=== PATIENT | female | born 1950 | race Caucasian/White ===

== ENCOUNTER 2019-05-30 08:48 | Emergency (ER) | payer MEDICARE, SELFPAY ==
--- NOTE | 2019-05-30 09:12 | ED_ITS ---
HPI - Trauma General Chief Complaint: Extremity Injury, Upper Stated Complaint: broken left arm Time Seen by Provider: 05/30/19 08:53 Source: patient and family Mode of arrival: Ambulatory Limitations: no limitations History of Present Illness HPI narrative: 68-year-old female nonsmoker with noncontributory medical history presents with her grandson and chief complaint of a known fractured left arm. The patient was working last Wednesday (6 days ago) when she tripped and fell onto her left arm. She suffered a humerus fracture and was seen and evaluated as an outpatient by her primary care provider with an x-ray noting the fracture. She was placed in a splint and a sling and given contact info for [facility]. She has had trouble getting in to see them. She denies any numbness, tingling or weakness Review of Systems Constitutional Constitutional: Denies chills, Denies fatigue, Denies fever(s), Denies frequent falls, Denies lethargy and Denies weakness Eyes Eyes: Denies change in vision, Denies eye discharge, Denies irritation and Denies loss of vision ENT Ears, Nose, Mouth, and Throat: Denies change in voice, Denies dizziness, Denies neck pain, Denies sore throat and Denies throat swelling Cardiovascular Cardiovascular: Denies chest pain, Denies irregular heart rhythm, Denies lightheadedness, Denies palpitations, Denies dyspnea, Denies dyspnea on exertion and Denies orthopnea Respiratory Respiratory: Denies cough, Denies dyspnea, Denies dyspnea on exertion and Denies wheezing Gastrointestinal Gastrointestinal: Denies abdominal pain, Denies change in bowel habits, Denies diarrhea, Denies nausea and Denies vomiting Genitourinary Genitourinary: Denies hematuria, Denies flank pain, Denies urinary incontinence and Denies urinary urgency Musculoskeletal Musculoskeletal: Denies back pain, Reports joint swelling, Denies muscle wea kness, Denies neck pain, Denies numbness, Reports radiating pain into limb and Denies tingling Integumentary/Breasts Skin/Breast: Denies pruritus, Denies erythema, Denies rash and Denies wounds Neurologic Neurologic: Denies behavioral changes, Denies confusion, Denies dizziness, Denies frequent falls, Denies loss of vision, Denies numbness, Denies tingling and Denies weakness Psychiatric Psychiatric: Denies anxiety, Denies behavioral changes, Denies confusion, Denies depression, Denies homicidal ideation and Denies suicidal ideation Endocrine Endocrine: Denies fatigue, Denies flushing and Denies palpitations Hematologic/Lymphatic Hematologic/Lymphatic: Denies easy bruising Allergic/Immunologic Allergic/Immunologic: Denies urticaria, Denies throat swelling and Denies wheezing Exam Narrative Exam Narrative: GENERAL: [68F] year old patient appears stated age. Well- nourished, well-developed patient, in mild distress.Splint in place on arm HEAD: Atraumatic. Normocephalic. EYES: Pupils equal round and reactive. Extraocular motions intact. No scleral icterus. No injection or drainage. ENT: Nose without bleeding, purulent drainage. Throat without erythema, tonsillar hypertrophy or exudate. Airway patent. NECK: Trachea midline. Non tender CARDIOVASCULAR: Regular rate and rhythm without murmurs, gallops, or rubs. RESPIRATORY: Clear to auscultation. Breath sounds equal bilaterally. No wheezes, rales, or rhonchi. GASTROINTESTINAL: Abdomen soft, non-tender, nondistended. EXTREMITIES: Splint in place on left arm, closed, isolated, neurovascularly intact. Aged bruising around the mid shaft of left humerus with yellowing at the edges. Patient also has tenderness in shoulder, elbow and wrist. Obvious deformity noted mid shaft and humerus BACK: Nontender without deformity or crepitance. No flank tenderness. NEURO: AOx3. SKIN: No rash or erythema of visible areas other than that which is named above Initial Vital Signs Initial Vital Signs: Vital Signs Temperature 98.9 F 05/30/19 09:16 Pulse Rate 82 05/30/19 09:16 Respiratory Rate 13 05/30/19 09:16 Blood Pressure 178/85 H 05/30/19 09:16 Pulse Oximetry 98 05/30/19 09:16 Procedures Orthopedic Splinting/Casting Injury #1: Side: left Upper Extremity Injury Location: upper arm Upper Extremity Immobilizer: sling/shoulder immobilizer and posterior splint Post splinting neuro exam: intact Post splinting vascular exam: intact Placed by: Nursing Course Orders Ordered: ED Orders 05/30/19 10:06 XR elbow LT min 3V Stat XR shoulder LT min 2V Stat XR wrist LT min 3V Stat Consultations Consultation #1: Discussed with on-call Orthopedics whom is in agreement with our plan Vital Signs Vital signs: Vital Signs - 8 hr 05/30/19 09:16 05/30/19 12:10 Temperature 98.9 F Pulse Rate 82 80 Respiratory Rate 13 18 Blood Pressure 178/85 H 140/81 Pulse Oximetry 98 97 Discharge Plan Departure Patient Disposition: Home Clinical Impression: Fracture of humerus Qualifiers: Encounter type: initial encounter Humerus Location: proximal Fracture type: closed Fracture alignment: displaced Laterality: left Discharge Date/Time: 05/30/19 12:10 Instructions: DI for Fracture Activity Restrictions/Additional Instructions: *You have been diagnosed with [acute humerus fracture] *What to do: *Take medications as directed: Continue taking your Hydrocodone as prescribed *Follow up with [facility] in 2-3 days, call for an appointment. Let them know you were seen in the Emergency Department and that we ask that you be seen in follow up *Return to ER if you should have any new, worsening or concerning symptoms, such as [increasing pain, weakness, numbness, tingling or other bothersome symptoms] Splint Care: Keep splint clean and dry. Elevated affected body part to decrease swelling. OK to use ice pack on the affected body part. Use for 15-20 minutes each time, for 5-6x per day. If you develop worsening pain, numbness, tingling, discoloration of the affected body part, loosen the splint by loosening the ANDREW wrap, and either see your doctor for an urgent re-assessment, or return to the Emergency Department. Return to the Emergency Department for any new or worsening symptoms. Referrals: Eugenio Medley MD [Physician] - Sukhi Scanlon MD [Primary Care Provider] -
[2019-05-30 09:16] VITALS: BP 178/85; PULSE 82; RESP 13; TEMP 37.2; O2SAT 98
--- NOTE | 2019-05-30 10:06 | DI.RAD.S_ITS ---
PROCEDURE: XR SHOULDER LT MIN 2V INDICATIONS: fall 6 days ago, pain, swelling TECHNIQUE: 2 views of the shoulder were acquired. COMPARISON: None. FINDINGS: Bones: There is obliquely oriented fracture involving the proximal shaft of the humerus that does not extend into the humeral head or the articular surface of the humeral head. However, there is moderate medial displacement of the distal fracture fragment by up to approximately 1.3 cm. [id number] degenerative changes of the acromioclavicular joint are present. Soft tissues: No suspicious soft tissue calcifications. IMPRESSION: Moderately displaced proximal left humeral shaft fracture. Dictated by: Jason Shine M.D. on 05/30/2019 at 9:36 Approved by: Jason Shine M.D. on 05/30/2019 at 9:38
--- NOTE | 2019-05-30 10:06 | DI.RAD.S_ITS ---
PROCEDURE: XR WRIST LT MIN 3V INDICATIONS: fall with pain and swelling TECHNIQUE: 3 views of the wrist were acquired. COMPARISON: None. FINDINGS: Bones: No displaced acute fractures of the wrist are evident. No dislocations or suspicious osseous lesions are present. Ulnar minus variance is present. Moderate degenerative changes involving the basal joint of the thumb are present. An ovoid ossific/calcific density is evident along the dorsal aspect of the proximal carpal row, which is of uncertain etiology. Soft tissues: No suspicious soft tissue calcifications. Prominent soft tissue swelling of the hand is evident. IMPRESSION: 1. No displaced left wrist fractures. 2. Ovoid ossific/calcific density along the dorsal aspect of the wrist is of uncertain etiology and may be related to previous trauma or less likely represent a small foreign body. 3. Prominent soft tissue swelling of the hand. Dictated by: Jason Shine M.D. on 05/30/2019 at 9:43 Approved by: Jason Shine M.D. on 05/30/2019 at 9:45
--- NOTE | 2019-05-30 10:06 | DI.RAD.S_ITS ---
PROCEDURE: XR ELBOW LT MIN 3V INDICATIONS: fall with pain and swelling TECHNIQUE: 3 views of the elbow were acquired. COMPARISON: None. FINDINGS: Bones: No displaced fracture or dislocation is appreciated involving the osseous structures of the elbow. However, alignment is suboptimal related to the patient's known proximal humeral shaft fracture. Soft tissues: The study is inadequate to evaluate for an elbow effusion given the obliquity of the distal humerus. Prominent subcutaneous edema is present about the elbow. IMPRESSION: No displaced elbow fractures are appreciated. If there is high clinical concern for an acute elbow fracture, please consider CT for further evaluation. Dictated by: Jason Shine M.D. on 05/30/2019 at 9:38 Approved by: Jason Shine M.D. on 05/30/2019 at 9:40
--- NOTE | 2019-05-30 12:01 | PC.NURSE ---
Post splint application assessed by Dr. Haji.
[2019-05-30 12:10] VITALS: BP 140/81; PULSE 80; RESP 18; O2SAT 97
== END 2019-05-30 12:10 | disposition home or self-care (01) ==
PROVIDERS: Emergency Provider Emergency Medicine; PCP Family Medicine
DX: S42.202A Unspecified fracture of upper end of left humerus, initial encounter for closed fracture (principal); W18.30XA Fall on same level, unspecified, initial encounter
CPT/HCPCS: 29105; 73030; 73080; 73110; 99283

== ENCOUNTER → 2020-04-05 10:45 | Outpatient (CLI) | payer MEDICARE, SELFPAY ==
--- NOTE | 2020-04-12 17:11 | PM.PFT.1 ---
Pulmonary Function Test Referral & Results Date Patient Seen: 04/05/20 Requesting provider: Sukhi Simental Results: The spirometry demonstrates an FVC of 1.62 L which is 57% of predicted. The FEV1 was measured at 0.86 L which is 40% of predicted. The FEV1/FVC ratio was 53 which is 69% of predicted. Following the administration of bronchodilator there was 13% improvement in FEV1 as well as a 51% improvement in FEF 25-75%. Lung volumes show an SVC of 2.01 L which is 74% of predicted. The diffusing capacity was measured at 13.74 which is 63% of predicted. The maximum voluntary ventilation was reduced Interpretation: This study demonstrates severe obstructive lung disease with FEV1 less than 1 L. There is minimal evidence of benefit following bronchodilator most pronounced in small airway flow based on improvement in FEF 25-75% as above There is also mild restrictive lung disease present based on reduction SVC There is also moderate reduction in diffusing capacity suggesting element of disease at the capillary alveolar level, unless patient is anemic. Clinical correlation suggested
== END ==
PROVIDERS: PCP Family Medicine; Referring Provider Family Medicine; Visit Provider Family Medicine
DX: J45.40 Moderate persistent asthma, uncomplicated (principal); R53.83 Other fatigue; F17.210 Nicotine dependence, cigarettes, uncomplicated
CPT/HCPCS: 94060; 94726; 94729

== ENCOUNTER → 2020-07-06 11:22 | Outpatient (CLI) | payer MEDICARE, SELFPAY ==
[2020-07-06 12:44] LABS: COVID19 -Nasal RAPID Negative (Negative)
== END ==
PROVIDERS: PCP Family Medicine; Visit Provider Physician Assistant
DX: Z20.822 Contact with and (suspected) exposure to COVID-19 (principal)
CPT/HCPCS: 87635; C9803

== ENCOUNTER → 2021-01-09 11:01 | Outpatient (CLI) | payer MEDICARE, SELFPAY ==
[2021-01-09 20:10] LABS: Calcium 9.9 mg/dL (8.4-10.2); Estimated Glomerular Filt Rate > 60.0 mL/min (>60)
== END ==
PROVIDERS: PCP Family Medicine
DX: M81.0 Age-related osteoporosis without current pathological fracture (principal)
CPT/HCPCS: 82310; 82565

== ENCOUNTER → 2021-03-26 10:43 | Outpatient (CLI) | payer MEDICARE, SELFPAY ==
--- NOTE | 2021-03-26 | DI.CT.S_ITS ---
PROCEDURE: CT FACIAL BONES WO CON INDICATIONS: PET-CT activity in the right mandible TECHNIQUE: Noncontrast 2.5 mm thick axial images acquired from the mandible through the frontal sinuses, with coronal and sagittal reformatting. For radiation dose reduction, the following was used: automated exposure control, adjustment of mA and/or kV according to patient size. COMPARISON: None. FINDINGS: Image quality: Excellent. Bones and teeth: Orbital meneses are intact. Sinus meneses show no fracture or deformity. Nasal bones and septum are intact. Visualized portions of the mandible demonstrate no fractures or subluxation. Zygomatic arches are intact. Pterygoid plates are intact. Visualized portions of the skull base and auditory canals are intact. Patient is edentulous. Small focal cortical defect in the right superior mandibular cortex measures 4 mm. Otherwise, no lytic or blastic lesion. Normal bone mineralization throughout. Sinuses: Paranasal sinuses are aerated, without fluid levels, mucosal thickening, or mucoceles. Mastoid air cells are aerated. Incidental note is made of pneumatization of the right middle turbinate. Soft tissues: No edema, masses, or fluid collections. No enlarged lymph nodes. No soft tissue lacerations or debris. Vascular: Visualized vascular structures appear normal in the absence of contrast. Bony vascular foramina and canals are intact. IMPRESSION: 1. Small right mandibular 4 mm cortical defect is probably related to prior dental extraction. No large lytic or blastic lesion. Consider short-term interval follow-up to assess stability. Approved by: Jeremiah Booth M.D. on 03/26/2021 at 14:54
== END ==
PROVIDERS: PCP Family Medicine; Referring Provider Family Medicine; Visit Provider Family Medicine
DX: R93.89 Abnormal findings on diagnostic imaging of other specified body structures
CPT/HCPCS: 70486

== ENCOUNTER → 2022-05-22 11:38 | Outpatient (CLI) | payer MEDICARE, SELFPAY ==
--- NOTE | 2022-05-22 11:40 | DI.CT.S_ITS ---
PROCEDURE: CT CHEST WO CON INDICATIONS: Malignant neoplasm of lower lobe, right bronchus TECHNIQUE: Noncontrast 5 mm thick sections acquired from the pulmonary apices to the posterior costophrenic angles. 1 mm lung window, 5 mm thick coronal and sagittal and 7 mm axial MIP reformats were then acquired. For radiation dose reduction, the following was used: automated exposure control, adjustment of mA and/or kV according to patient size. COMPARISON: [facility], CT, CT CHEST WITHOUT CONTRAST, 09/02/2020, 11:02. [facility], CT, CT CHEST WITHOUT CONTRAST, 12/30/2021, 10:23. [facility], CT, CT CHEST WITHOUT CONTRAST, 07/24/2021, 12:25. [place], [place], PET NECK TO MID THIGH, 01/01/2021, 13:45. [place], [place], PET NECK TO MID THIGH, 04/03/2020, 13:32. FINDINGS: Image quality: Excellent. Lungs and pleura: There is a 1 cm nodule in the right lower lobe (series 3, image 176), unchanged in size when compared to the last exam. There is infiltrate and fibrotic changes around the nodule, compatible with post radiation change. There are multiple small subcentimeter nodules bilaterally, also unchanged. Moderate centrilobular emphysema. No acute air space opacities. No pleural effusions or pneumothorax. Central and peripheral airways are patent and normal in caliber. Mediastinum: Heart size is normal. No pericardial effusion. No mediastinal adenopathy by size criteria. Thoracic aorta and central pulmonary arteries are normal in size. Esophagus is normal in caliber. No hiatal hernia. Bones and chest wall: ORIF of left femoral fracture. No suspicious bony lesions. No vertebral body compression fractures. No axillary or supraclavicular adenopathy by size criteria. Thyroid gland is unremarkable. Abdomen: Visualized upper abdominal solid organs and bowel loops appear normal in the absence of contrast. IMPRESSION: 1. Stable 1 cm nodule in the right lower lobe. Surrounding post radiation changes noted. 2. Stable small lung nodules bilaterally. 3. No lymphadenopathy. 4. Moderate emphysema. Dictated by: Ap Sepulveda M.D. on 05/22/2022 at 14:47 Approved by: Ap Sepulveda M.D. on 05/22/2022 at 14:56
== END ==
PROVIDERS: PCP Family Medicine; Referring Provider Radiology Radiation Oncology; Visit Provider Radiology Radiation Oncology
DX: C34.31 Malignant neoplasm of lower lobe, right bronchus or lung (principal); R91.8 Other nonspecific abnormal finding of lung field; J43.2 Centrilobular emphysema
CPT/HCPCS: 71250

== ENCOUNTER → 2022-08-21 12:51 | Outpatient (CLI) | payer MEDICARE, SELFPAY ==
--- NOTE | 2022-08-21 | DI.CT.S_ITS ---
PROCEDURE: CT FACIAL BONES WO CON INDICATIONS: atypical facial pain TECHNIQUE: Noncontrast 2.5 mm thick axial images acquired from the mandible through the frontal sinuses, with coronal and sagittal reformatting. For radiation dose reduction, the following was used: automated exposure control, adjustment of mA and/or kV according to patient size. COMPARISON: [facility], [place], PET NECK TO MID THIGH, 01/01/2021, 13:45. [facility], CT, CT FACIAL BONES WO CON, 03/26/2021, 11:03. FINDINGS: Image quality: Excellent. Bones and teeth: Orbital meneses are intact. Sinus meneses show no fracture or deformity. Nasal bones and septum are intact. Visualized portions of the mandible demonstrate no fractures or subluxation, and the patient is edentulous. An area of cortical defect, sharply demarcated, within the superior surface of the mandible is virtually identical to present on prior CT scanning that included this same area 03/26/21. Zygomatic arches are intact. Pterygoid plates are intact. Visualized portions of the skull base and auditory canals are intact. Sinuses: Paranasal sinuses are aerated, without fluid levels, mucosal thickening, or mucoceles. Mastoid air cells are aerated. Soft tissues: No edema, masses, or fluid collections. No enlarged lymph nodes. No soft tissue lacerations or debris. Vascular: Visualized vascular structures appear normal in the absence of contrast. Bony vascular foramina and canals are intact. IMPRESSION: No change in CT appearance of the right mandible in the area of prior PET-CT concern. Prior CT scanning utilizing similar high-resolution technique shows the cortical defect to be free any adjacent soft tissue inflammation or mass, in this may simply represent a vascular groove. No new osteolytic or blastic lesion is found. No adenopathy is seen. Overall, source of atypical facial pain is not identified. Please note that follow-up nuclear medicine bone scan and/or PET-CT scanning may be warranted, depending on the clinical status. Dictated by: Erick Avalos M.D. on 08/21/2022 at 15:27 Approved by: Erick Avalos M.D. on 08/21/2022 at 15:36
== END ==
PROVIDERS: PCP Family Medicine; Referring Provider Family Medicine; Visit Provider Family Medicine
DX: G50.1 Atypical facial pain (principal)
CPT/HCPCS: 70486

== ENCOUNTER → 2023-01-04 09:41 | Outpatient (CLI) | payer MEDICARE, SELFPAY ==
--- NOTE | 2023-01-04 | DI.RAD.S_ITS ---
PROCEDURE: XR DEXA AXIAL SKELETON INDICATIONS: osteoporosis COMPARISON: None. FINDINGS: This blank DEXA report has been sent in error by the PACS system. The correct and complete report will be forthcoming in 1-2 days. Thank you for your patience and understanding. Dictated by: Rubén Barragan M.D. on 01/04/2023 at 10:31 Approved by: Rubén Barragan M.D. on 01/04/2023 at 10:32
--- NOTE | 2023-01-04 | DI.CT.S_ITS ---
PROCEDURE: CT CHEST WO CON INDICATIONS: Malignant neoplasm of lower lobe, right bronchus TECHNIQUE: Noncontrast 2.0-2.5 mm thick sections acquired from the pulmonary apices to the posterior costophrenic angles. 7 mm thick axial MIP and 5 mm coronal and sagittal reformats were then acquired. A low radiation dose technique was utilized. COMPARISON: [facility], CT, CT CHEST WO CON, 05/22/2022, 12:18. FINDINGS: Image quality: Diagnostic, given the low radiation dose technique. Lungs and pleura: Similar size and appearance of approximately 1 centimeter nodule within the right lower lobe (3/181). There is surrounding infiltrative and fibrotic changes around the nodule, compatible with post radiation changes. Additional subcentimeter pulmonary nodules bilaterally are unchanged. Moderate centrilobular emphysema. No acute airspace opacities. No pleural effusion or pneumothorax. Biapical pleural parenchymal scarring. Mediastinum: Heart size is normal. No pericardial effusion. No mediastinal adenopathy by size criteria. Thoracic aorta and central pulmonary arteries are normal in size. Atherosclerotic vascular calcifications. Esophagus is normal in caliber. No hiatal hernia. Bones and chest wall: No suspicious bony lesions. ORIF of left humeral fracture. Old left-sided rib fractures. Degenerative changes of the spine. No vertebral body compression fractures. No axillary or supraclavicular adenopathy by size criteria. Thyroid gland is unremarkable . Abdomen: Visualized upper abdomen solid organs and bowel loops appear normal in the absence of contrast. IMPRESSION: 1. Stable 1 centimeter right lower lobe pulmonary nodule with surrounding post radiation changes. 2. Additional subcentimeter lung nodules are stable. 3. No lymphadenopathy. 4. Moderate centrilobular emphysema. Dictated by: Rubén Barragan M.D. on 01/04/2023 at 11:42 Approved by: Rubén Barragan M.D. on 01/04/2023 at 11:53
--- NOTE | 2023-01-04 10:19 | DI.DEXA.S_ITS ---
Bone Density Report Name: CHANA DEL REAL Age: 72 Sex: Female Ethnicity: White Date of : 1950 Indication: postmenopausal; screening for osteoporosis; Referring Provider: BRIAN SAUCEDO Study: Bone densitometry was performed. Exam Date: January 04, 2023 Accession number: [id number] Bone Density: Region BMD T-score Z-score Classification AP Spine(L1-L4) 0.842 -1.9 0.3 Osteopenia Femoral Neck (Left) 0.526 -2.9 -1.1 Osteoporosis Total Hip (Left) 0.620 -2.6 -1.1 Osteoporosis Femoral Neck (Right) 0.562 -2.6 -0.7 Osteoporosis Total Hip (Right) 0.626 -2.6 -1.0 Osteoporosis Total Hip Mean 0.623 -2.6 -1.1 Osteoporosis World Health Organization criteria for BMD impression classify patients as: Normal (T-score at or above -1.0), Osteopenia (T-score between -1.0 and -2.5), or Osteoporosis (T-score at or below -2.5). 10-year Fracture Risk: FRAX not reported because: Some T-score for Spine Total or Hip Total or Femoral Neck at or below -2.5 Impression: The patient has osteoporosis, based on the Left Femoral Neck T-score. Discussion: INCREASED RISK OF FRACTURE. BONE DENSITY IS UNDESIRABLY LOW AT ONE OR MORE SKELETAL SITES, CONSISTENT WITH POSTMENOPAUSAL OSTEOPOROSIS. This patient's lowest T-score meets the World Health Organization's (WHO) criteria for osteoporosis at one or more sites (T-score -2.5 or below). In untreated patients, the risk of osteoporotic fracture increases approximately two-fold for each 1.0 SD decrease in T-score. Low bone density is not the only risk factor for fracture; also consider factors such as patient's age, frailty or poor health, risk of falling, risk of injury, previous osteoporotic fracture, family history of osteoporosis, cigarette smoking, low body weight, etc. Not everyone with low bone mineral density has osteoporosis; osteomalacia and other metabolic bone disorders should also be considered. Patients who have osteoporosis should be evaluated for specific diseases and conditions (secondary causes) that may cause or contribute to bone loss. The [place] Association [employer] Endocrinologists (AACE) and National Osteoporosis Foundation (NOF) recommend pharmacologic intervention for all postmenopausal women whose T-score is in this range. The patient should follow a healthful lifestyle (good nutrition with adequate calcium and vitamin D, and appropriate weight-bearing exercise). Follow-Up: Consider a repeat BMD and Vertebral Fracture Assessment (VFA) exam in 2 years or sooner if medically necessary, to reassess this patient's status. Reported by: JOHNNY BARROW M.D. on 01/04/2023 10:25:00 AM.
== END ==
PROVIDERS: PCP Family Medicine; Referring Provider Radiology Radiation Oncology; Visit Provider Family Medicine
DX: J43.2 Centrilobular emphysema (principal); C34.31 Malignant neoplasm of lower lobe, right bronchus or lung; R91.8 Other nonspecific abnormal finding of lung field; Z13.820 Encounter for screening for osteoporosis; M81.0 Age-related osteoporosis without current pathological fracture; Z78.0 Asymptomatic menopausal state
CPT/HCPCS: 71250; 77080

== ENCOUNTER 2023-04-14 10:49 | Emergency (ER) | payer MEDICARE, SELFPAY ==
[2023-04-14 11:00] VITALS: BP 148/94; PULSE 108; RESP 20; O2SAT 99; BMI 18.6
--- NOTE | 2023-04-14 11:05 | DI.RAD.S_ITS ---
PROCEDURE: XR KNEE RT 1TO2V INDICATIONS: fall, knee pain and tib/fib pain TECHNIQUE: 2 views of the knee were acquired. COMPARISON: None. FINDINGS: Bones: Horizontal fracture of the patella with 10 mm distraction. Soft tissues: No joint effusion. No suspicious soft tissue calcifications. IMPRESSION: Horizontal fracture of the patella with 10 mm distraction. Dictated by: Hernan Douglas M.D. on 04/14/2023 at 11:36 Approved by: Hernan Douglas M.D. on 04/14/2023 at 11:37
--- NOTE | 2023-04-14 11:05 | DI.RAD.S_ITS ---
PROCEDURE: XR TIBIA FUBULA RT 2V INDICATIONS: fall, knee pain and tib/fib pain TECHNIQUE: 2 views of the tibia and fibula were acquired. COMPARISON: None. FINDINGS: Bones: No fractures or dislocations. No suspicious bony lesions. Soft tissues: No suspicious soft tissue calcifications or masses. IMPRESSION: No acute fracture of the tibia or fibula. Dictated by: Hernan Douglas M.D. on 04/14/2023 at 11:37 Approved by: Hernan Douglas M.D. on 04/14/2023 at 11:38
--- NOTE | 2023-04-14 11:30 | DI.CT.S_ITS ---
PROCEDURE: CT KNEE RIGHT WITHOUT CON INDICATIONS: right knee pain TECHNIQUE: Noncontrast 1-1.5 mm axial sections acquired from the mid-patella to the proximal tibia, with coronal and sagittal reformats. COMPARISON: [facility], [place], XR KNEE RT 1TO2V, 04/14/2023, 11:13. FINDINGS: Image quality: Excellent. Bones: Horizontal fracture of the middle pole of the patella with comminuted fracture lines extending into the lower pole. Soft tissues: Moderate-sized joint knee joint effusion. Small amount of fluid is also seen within the patellar bursa.. IMPRESSION: Mildly comminuted fracture of the middle pole of the patella. Dictated by: Hernan Douglas M.D. on 04/14/2023 at 11:59 Approved by: Hernan Douglas M.D. on 04/14/2023 at 12:05
[2023-04-14 12:26] VITALS: BP 125/67; PULSE 95; RESP 16; TEMP 37.2; O2SAT 97
--- NOTE | 2023-04-14 12:28 | ED.LOWEXIN ---
HPI - Extremity Injury (Lower) <Ceci Bravo PA-C - Last Filed: 04/14/23 15:45> General Chief Complaint: Extremity Injury, Lower Stated Complaint: fell on knee non weight bearing Time Seen by Provider: 04/14/23 11:06 Source: patient Mode of arrival: Wheelchair History of Present Illness HPI Narrative: 72-year-old woman with history of osteoporosis and 25pack year smoking hx current 1/2 pack a day smoker presents with concern for right knee pain and swelling with inability to ambulate and weightbear. Patient states 2 days ago on Wednesday morning she was getting out of her recliner and had blankets on she was pulling the blankets off and they got tangled in her feet and when she went to step down onto the ground she slipped and fell forward onto her knees primarily onto her right knee. Since that time she really has not been able to move at all and bear weight because of the pain. She states she lives at home in a single-level home and her grandson lives nearby. He came and checked on her and on Wednesday yesterday tried to get her to come in for evaluation but she at that time wanted to wait but today agreed to come in for a check. She was hoping she simply had a big bruise. She says the pain has been quite significant and her treatment at home has been acetaminophen and ?not moving a muscle?. She notes that she has severe osteoporosis and had a problem with slow healing with her last break a humerus fracture that she says took years to heal after ultimately she did get a plate placed. She denies numbness or tingling of the affected extremity, any other injury complaint or concern. She states that she does not normally use any walking aids and is typically quite active. Related Data Home Medications Medication Instructions Recorded Confirmed albuterol sulfate 90 mcg/actuation 1 puff inhalation ONCE 12/24/20 12/24/20 aerosol inhaler Allergies Allergy/AdvReac Type Severity Reaction Status Date / Time No Known Drug Allergies Allergy Verified 04/14/23 11:05 Review of Systems <Ceci Bravo PA-C - Last Filed: 04/14/23 15:45> Review of Systems Narrative: See HPI Patient History <Ceci Bravo PA-C - Last Filed: 04/14/23 15:45> Social History Smoking Status: Current every day smoker Smoking Status: Current every day smoker tobacco type: cigarettes alcohol intake frequency: holidays/special occasions only Substance Use Type: does not use Exam <Ceci Bravo PA-C - Last Filed: 04/14/23 15:45> Narrative Exam Narrative: GENERAL: 72 year old patient appears stated age. Very slim pt, in mild distress--patient is seated in a wheelchair; pleasant, alert and interactive. HEAD: Atraumatic. Normocephalic. EYES: Pupils equal round and reactive. Extraocular motions intact. No scleral icterus. No injection or drainage. ENT: Nose without bleeding, purulent drainage. NECK: Trachea midline. CARDIOVASCULAR: Regular rate and rhythm without murmurs, gallops, or rubs. RESPIRATORY: Clear to auscultation. Breath sounds equal bilaterally. No wheezes, rales, or rhonchi. EXTREMITIES: The right anterior knee has significant swelling with erythema and mild heat. Skin is broken. Patient is unable to perform range of motion of the knee 2nd to pain and it is held at approximately 145 degrees of flexion. Distal dorsalis pedis and posterior tibialis are strong intact. Range of motion of the right ankle is reduced 2nd to knee pain. There is no swelling or tenderness of the lateral and medial joint lines of the right knee. Slight tenderness just superior to the patella and inferior to the patella. Significant tenderness over the patella, with effusion. Patient does have slightly cool lower extremities however they are equally cool bilaterally and skin color is pink. No edema or joint tenderness. NEURO: AOx3. SKIN: No rash or erythema of visible areas Initial Vital Signs Initial Vital Signs: Vital Signs Pulse Rate 108 H 04/14/23 11:00 Respiratory Rate 20 04/14/23 11:00 Blood Pressure 148/94 H 04/14/23 11:00 Pulse Oximetry 99 04/14/23 11:00 Oxygen Delivery Method Room Air 04/14/23 11:00 <Daysi Mclean MD - Last Filed: 04/14/23 18:55> Initial Vital Signs Initial Vital Signs: Vital Signs Pulse Rate 108 H 04/14/23 11:00 Respiratory Rate 20 04/14/23 11:00 Blood Pressure 148/94 H 04/14/23 11:00 Pulse Oximetry 99 11/01/23 11:00 Oxygen Delivery Method Room Air 04/14/23 11:00 Course <Ceci Bravo PA-C - Last Filed: 04/14/23 15:45> Course Course Narrative: Had requested orthopedic consult for this patient and did discuss the patient with attending physician Dr. Mclean who feels we should wait for ortho to discuss the plan. Ortho was in surgery until after 1300 today and patient was advised we are still waiting callback. However patient stated that she needed to leave to catch a [place]. Pt was advised by RN after discussion with myself that pt does choose to leave she will be leaving Against Medical Advice. She did ultimately decide to leave Against Medical Advice prior to receiving consult callback from orthopedics. [id number] Orders Ordered: ED Orders 04/14/23 11:05 XR knee RT 1to2V Stat XR tibia fibula RT 2V Stat 04/14/23 11:30 Ct Knee right without con Stat Discontinued Medications Hydrocodone Bitart/Acetaminophen (Hydrocodone/Acet 5/325 Tablet) 1 tab PO NOW ONE Stop: 04/14/23 13:29 Last Admin: 04/14/23 13:43 Dose: 1 tab Documented By: SHANIKA Ondansetron HCl (Ondansetron 4 Mg Odt) 4 mg SL NOW ONE Stop: 04/14/23 13:29 Last Admin: 04/14/23 13:43 Dose: 4 mg Documented By: SHANIKA Vital Signs Vital signs: Vital Signs - 8 hr 04/14/23 11:00 04/14/23 12:26 Temperature 99 F Pulse Rate 108 H 95 H Respiratory Rate 20 16 Blood Pressure 148/94 H 125/67 Pulse Oximetry 99 97 Oxygen Delivery Method Room Air Room Air <Daysi Mclean MD - Last Filed: 04/14/23 18:55> Orders Ordered: ED Orders 04/14/23 11:05 XR knee RT 1to2V Stat XR tibia fibula RT 2V Stat 04/14/23 11:30 Ct Knee right without con Stat Discontinued Medications Hydrocodone Bitart/Acetaminophen (Hydrocodone/Acet 5/325 Tablet) 1 tab PO NOW ONE Stop: 04/14/23 13:29 Last Admin: 04/14/23 13:43 Dose: 1 tab Documented By: SHANIKA Ondansetron HCl (Ondansetron 4 Mg Odt) 4 mg SL NOW ONE Stop: 04/14/23 13:29 Last Admin: 04/14/23 13:43 Dose: 4 mg Documented By: SHANIKA Vital Signs Vital signs: Vital Signs - 8 hr 04/14/23 11:00 04/14/23 12:26 Temperature 99 F Pulse Rate 108 H 95 H Respiratory Rate 20 16 Blood Pressure 148/94 H 125/67 Pulse Oximetry 99 97 Oxygen Delivery Method Room Air Room Air MDM - Extremity Injury (Lower) <Ceci Bravo PA-C - Last Filed: 04/14/23 15:45> Differential Diagnosis Differential diagnosis: Likely acute internal derangement of knee and other (Patellar fracture) Imaging Data CT knee: My Impression: agree with Radiology interpretation Radiologist's Impression: [address] [address] [address] Scan Report Signed Patient: Elke Bryan MR#: [id number] : 1950 Acct:[id number] Age/Sex: 72 / F Date of Service: 04/14/23 Loc: ED Accession Number: [id number] Procedure: Ct Knee right without con Ordering Provider: Ceci Bravo P.A-C PROCEDURE: CT KNEE RIGHT WITHOUT CON INDICATIONS: right knee pain TECHNIQUE: Noncontrast 1-1.5 mm axial sections acquired from the mid-patella to the proximal tibia, with coronal and sagittal reformats. COMPARISON: [facility], APRIL, XR KNEE RT 1TO2V, 04/14/2023, 11:13. FINDINGS: Image quality: Excellent. Bones: Horizontal fracture of the middle pole of the patella with comminuted fracture lines extending into the lower pole. Soft tissues: Moderate-sized joint knee joint effusion. Small amount of fluid is also seen within the patellar bursa.. IMPRESSION: Mildly comminuted fracture of the middle pole of the patella. Dictated by: Hernan Douglas M.D. on 04/14/2023 at 11:59 Approved by: Hernan Douglas M.D. on 04/14/2023 at 12:05 Extremity x-ray #1: My Impression: agree with Radiology interpretation Radiologist's Impression: [address] [address] XRay Report Signed Patient: Elke Bryan MR#: [id number] : 1950 Acct:[id number] Age/Sex: 72 / F Date of Service: 04/14/23 Loc: ED Accession Number: [id number] Procedure: XR knee RT 1to2V Ordering Provider: Daysi Mclean MD PROCEDURE: XR KNEE RT 1TO2V INDICATIONS: fall, knee pain and tib/fib pain TECHNIQUE: 2 views of the knee were acquired. COMPARISON: None. FINDINGS: Bones: Horizontal fracture of the patella with 10 mm distraction. Soft tissues: No joint effusion. No suspicious soft tissue calcifications. IMPRESSION: Horizontal fracture of the patella with 10 mm distraction. Dictated by: Hernan Douglas M.D. on 04/14/2023 at 11:36 Approved by: Hernan Douglas M.D. on 04/14/2023 at 11:37 [place] [address] XRay Report Signed Patient: Elke Bryan MR#: [id number] : 1950 Acct:[id number] Age/Sex: 72 / F Date of Service: 04/14/23 Loc: ED Accession Number: [id number] Procedure: XR tibia fibula RT 2V Ordering Provider: Daysi Mclean MD PROCEDURE: XR TIBIA FUBULA RT 2V INDICATIONS: fall, knee pain and tib/fib pain TECHNIQUE: 2 views of the tibia and fibula were acquired. COMPARISON: None. FINDINGS: Bones: No fractures or dislocations. No suspicious bony lesions. Soft tissues: No suspicious soft tissue calcifications or masses. IMPRESSION: No acute fracture of the tibia or fibula. Dictated by: Hernan Douglas M.D. on 04/14/2023 at 11:37 Approved by: Hernan Douglas M.D. on 04/14/2023 at 11:38 Treatment and disposition Shared decision making:: Shared decision-making was used to determine the patient's evaluation plan in the emergency department plan for outpatient follow-up. MDM Narrative Medical decision making narrative: This is a very slim 72-year-old woman with history of severe osteoporosis and 25 pack-year smoking history current smoker who presents with concern for right knee pain for just over 48 hours after she fell onto her right knee. When getting out of her recliner. She has been nonweightbearing and x-rays show a patellar fracture. CT of the knee is also obtained. Which shows a horizontal fracture of middle pole of the patella with comminuted fracture lines extending to the lower pole. Orthopedics Dr. Yadav is consulted regarding this patient's plan of care during her stay in the ED. She is placed in a knee brace and provided with crutches and crutch training. She is advised that she should talk to her grandson about checking on her more frequently and being available he does live nearby but she lives by herself. Given her osteoporosis and reduced mobility now I do have some concern for potential additional injury. However a walker is not realistic given her injury pattern. She does express interest in crutches and is open to using these and acknowledges she will have to use great care whenever she is doing any movement. Unfortunately patient elected to leave prior to getting a callback from orthopedics as she said she had to catch a [place] and was unwilling to wait longer. She was signed out Against Medical Advice due to this. Had planned to provide a Short course of pain medicine; however given that the patient left Against Medical Advice elected not to do this. Discharge Plan Departure Patient Disposition: Left Against Medical Advice Clinical Impression: Right patella fracture Qualifiers: Encounter type: initial encounter Fracture type: closed Fracture morphology: unspecified fracture morphology Fracture alignment: displaced Qualified Code(s): S82.001A - Unspecified fracture of right patella, initial encounter for closed fracture Fall Qualifiers: Encounter type: initial encounter Qualified Code(s): W19.XXXA - Unspecified fall, initial encounter Prescriptions: No Action albuterol sulfate 90 mcg/actuation HFA aerosol inhaler 1 puff inhalation ONCE Referrals: Martell Yadav MD [Physician] - (Right closed horizontal fracture of the middle pole of the patella with comminuted fracture lines extending to the lower pole. Patient left Against Medical Advice from ER prior to ortho consult [place]; will need ortho follow-up ) Sukhi Simental MD [Primary Care Provider] - Stand Alone Forms: Patient Portal/API, Against Medical Advice ED Sign-out <Daysi Mclean MD - Last Filed: 04/14/23 18:55> Cosign ED Attending Cosignature Attestation: I did not see this patient. I was available all times for consultation.
[2023-04-14] MEDS: ONDANSETRON 4 MG ODT SL (13:43)
[2023-04-14] MEDS: HYDROCODONE/ACET 5/325 TABLET 1 TAB PO (13:43)
== END 2023-04-14 14:02 | disposition left against medical advice (07) ==
PROVIDERS: Emergency Provider Student in an Organized Health Care Education/Training Program; PCP Family Medicine
DX: S82.001A Unspecified fracture of right patella, initial encounter for closed fracture (principal); W17.89XD Other fall from one level to another, subsequent encounter
CPT/HCPCS: 73560; 73590; 73700; 99284

== ENCOUNTER 2023-04-23 09:04 | Day surgery (SDC) | payer MEDICARE, SELFPAY ==
[2023-04-21 08:36] VITALS: BMI 18.8
--- NOTE | 2023-04-23 | DI.RAD.S_ITS ---
PROCEDURE: XR KNEE RT 1TO2V COMPARISON: [facility], CR, XR KNEE RT 1TO2V, 04/14/2023, 11:13. INDICATIONS: RT KNEE PATELA REPAIR FINDINGS: 2 spot fluoroscopic films show 2 surgical screws transfixing a transverse right patellar fracture. Surgical hardware appears in good position without evidence for hardware complication IMPRESSION: Satisfactory appearance of internal fixation of transverse patellar fracture. Dictated by: Sina Ross M.D. on 04/23/2023 at 15:51 Approved by: Sina Ross M.D. on 04/23/2023 at 15:52
[2023-04-23 09:24] VITALS: BMI 18.8
--- NOTE | 2023-04-23 09:25 | P.HP_ITS ---
History of Present Illness History of Present Illness Date Patient Seen: 04/23/23 Time Patient Seen: 09:25 [place] [facility] [place]ative: I am seeing patient in the preoperative holding area for evaluation right patella fracture. She sustained a ground level fall and was seen at [facility] where x-rays were taken demonstrating a transverse patella fracture. She was unable to perform a straight leg raise and she had significant pain. She was placed into a knee immobilizer and has been resting at home since. Denies any distal numbness or tingling. No other complaints at this time. She does have a past medical history of smoking with COPD. [facility] Surgical History (Updated 04/21/23 @ 08:42 by Camilla Recinos RN) History of surgery on arm (07/10/20) Social History household members: spouse Smoking Status: Current every day smoker Meds Home Medications and Allergies Home Medications Medication Instructions Recorded Confirmed Type albuterol sulfate 90 mcg/actuation 1 puff inhalation ONCE 12/24/20 04/23/23 History aerosol inhaler Advair HFA 04/22/23 History hydrocodone 5 mg-acetaminophen 325 1 tab PO PRN PRN Pain, Moderate 04/23/23 04/23/23 History mg tablet Allergies Allergy/AdvReac Type Severity Reaction Status Date / Time No Known Drug Allergies Allergy Verified 04/23/23 09:24 Review of Systems Review of Systems ROS: Yes All systems reviewed with the patient and are negative except as otherwise documented Exam Narrative Exam Narrative: HEENT: Head atraumatic eyes anicteric moist mucous membranes Cardiovascular: Palpable peripheral pulses extremities are warm and well perfused Respiratory: Breathing comfortably on room air Psychiatric: Appropriate mood and affect Neuro: No acute deficits Musculoskeletal: Exam of the right lower extremity demonstrates bruising over the patella and some effusion. Sensation intact distally from L2 through S2. 2+ dorsalis pedis and posterior tibialis pulse. Objective Imaging Right knee x-ray: My impression: AP and lateral right knee nonweightbearing demonstrates transverse patella fracture Assessment & Plan Assessment & Plan narrative: Assessment: 72-year-old female with a right transverse patella fracture Plan: We discussed indications for treatment of patella fracture. Her fracture is transverse and she is unable to perform a straight leg raise. In order to restore the extensor mechanism she is indicated for operative fixation of her patella. Risks and benefits of surgery were discussed again including the risk of infection, damage to internal structures, bleeding, nerve injury, instability, need for revision surgery, blood clots, anesthesia and . No guarantees were made regarding outcomes. Patient expressed understanding and accepted these risks and wished to go forward with surgery and consent was signed. Her right lower extremity was marked with my initials.
[2023-04-23] MEDS: LACTATED RINGERS 1,000 ML 42 ML IV (09:38)
[2023-04-23] MEDS: ALBUTEROL/IPRATROPIUM 3 ML AMPUL INH (09:39)
[2023-04-23] MEDS: ACETAMINOPHEN 325 MG TABLET 975 MG PO (09:39)
[2023-04-23 09:45] VITALS: BP 142/79; PULSE 94; RESP 26; TEMP 37.2; O2SAT 97
[2023-04-23] MEDS: TRANEXAMIC ACID 1,000 MG VIAL 1000 MG INJ (09:55)
[2023-04-23] MEDS: CEFAZOLIN 2 GM/100 ML PREMIX 100 ML IV (10:05)
--- NOTE | 2023-04-23 10:19 | SUR.OPER ---
Supine on padded OR bed, head on pillow, arms secured on padded arm boards at <90 degrees abduction, legs uncrossed, safety belt at thigh, tape over blanket over lower legs.
[2023-04-23] MEDS: BUPIVACAINE 0.25% (PF) 30 ML, EPINEPHrine 0.15 MG INJ (10:36)
[2023-04-23 11:07] VITALS: BP 121/64; PULSE 85; RESP 21; TEMP 36.8; O2SAT 98
[2023-04-23 11:12] VITALS: BP 132/71; PULSE 85; RESP 16; O2SAT 98
[2023-04-23 11:17] VITALS: BP 116/66; PULSE 81; RESP 17; O2SAT 98
[2023-04-23 11:24] VITALS: BP 129/69; PULSE 78; RESP 18; O2SAT 98
--- NOTE | 2023-04-23 11:29 | PM.OP.1 ---
Operative Date/Time/Diagnoses Date of procedure: 04/23/23 Time of procedure: 11:29 Pre-op diagnosis: Right patella fracture Post-op diagnosis: same Procedure & Clinicians Procedure: Right patella ORIF Same procedure as scheduled: Yes Indications: Indications: This is an 72-year-old female who sustained a ground level fall suffering a right patellar fracture. He was seen at an outside ED where imaging was taken and the patient was placed into a knee immobilizer. On my exam, patient is unable to perform a straight leg raise. In order to restore the extensor mechanism, they are indicated for operative fixation of the patella. Surgeon: Martell Yadav Click Yes if Unassisted: Yes Anesthesia Type: General Operative Notes Findings: Transverse patella fx as seen on xray and direct visualization Closure Type: primary Specimen(s): none sent Prosthetic devices, grafts, tissues, transplants, or devices: Implants: 2 partially-threaded Arthrex screws with a FiberTape Estimated Blood Loss (mL): 10 Blood products transfused: none Tourniquet time (min): 48 Procedure in detail: Procedure: Patient was seen in the preoperative holding area. We again discussed the risks and benefits of surgery including the risks of infection, failure of hardware, damage to internal structures, need for future surgery, anesthesia and . Patient expressed understanding and wished to go forward with surgery. The correct right lower extremity was marked with my initials. Patient was then brought back to the operating room and transferred to the operating table supine. The patient underwent smooth induction of anesthesia. The leg was placed on a bump, and a tourniquet was applied to the upper thigh. Standard sterile prep and drape was performed. We then performed a time-out and my initials were again confirmed the correct operative extremity. The tourniquet was inflated to 250 mmHg. I began with a direct midline incision over the patella down to the patellar tendon, bone of the patella and the quadriceps tendon. It was noted that this time that there was a patellar fracture directly midline and transverse. Fracture reduction was completed with large pointed reduction clamps. Two separate guidewires were placed through the fracture and confirmed to be in the right position on fluoroscopy. These were then over-drilled and measured and partially threaded cannulated screws were placed. Then, through the screws a FiberTape was brought through in a figure of 8 pattern. This was then tied distally with the aid of a tensioner. The rent in the patellar tendon was closed with Ethibond. The wound was thoroughly irrigated and closed with 2-0 PDS and Monocryl. Wound was then dressed with an Aquacel. The patient was then placed into a knee immobilizer and brought to the postoperative recovery unit without any complications. Complications: none Post-operative Condition: stable Disposition: PACU Plan for aftercare: Aftercare: Patient will remain in a knee immobilizer for 2 weeks after which they will be transitioned to a hinged knee brace in clinic at the 2 week yo. No weight-bearing until 2 weeks and then only when the hinged knee braces locked in extension and with crutches or a walker. We will start a flexion progression starting at 6 weeks. Aquacel dressing to remain on for 2 weeks. This will be removed in clinic. Okay to shower with soap and water running over top of the dressing. NOTE: If water gets underneath the dressing, please remove the dressing and replace with clean dry 4x4s.
--- NOTE | 2023-04-23 12:06 | SUR.PHASEII ---
Patient still unable to lift either leg and has no feeling in her lower extremities; assisted patient with clothing but advised that nurses would need to be held until movement in her lower extremities. V/U. Notified Grandson; grandson is picking up prescriptions. Lunch tray ordered for patient.
[2023-04-23] MEDS: OXYCODONE IR 5 MG TABLET PO (15:28)
[2023-04-23] MEDS: ONDANSETRON 4 MG/2 ML INJ IV (15:28)
--- NOTE | 2023-04-23 15:30 | SUR.PHASEII ---
late entry for 1400: Attempted to ambulate patient for second time and patient has no feeling in her feet and unable to bear weight. Patient states that she needs to use the bathroom. Assisted to the bathroom but after multiple attempts, patient unable to void. Patient states that she last voided at 0500 this morning. Bladder scan performed at bedside; bladder scan 300 mls. Inserted rojas catheter due to urinary retention. Five hundred mls of clear yellow urine emptied. Rojas discontinued after bladder emptying.
--- NOTE | 2023-04-23 15:56 | SUR.PHASEII ---
Attempted to ambulate patient again; patient stronger than previous attempts but still weak to her non-operative leg. Advised patient that we would attempt again in 30-40 minutes. Patient remains stable and no needs at this time. Maddison updated.
[2023-04-23 16:00] VITALS: BP 128/84; PULSE 94; RESP 20; TEMP 36.2; O2SAT 94
== END 2023-04-23 16:30 | disposition home or self-care (01) ==
PROVIDERS: PCP Family Medicine; Referring Provider Orthopaedic Surgery; Visit Provider Orthopaedic Surgery
PROC: 0QSD04Z Reposition Right Patella with Internal Fixation Device, Open Approach (ICD-10-PCS; CPT 27524; principal; 2023-04-23 10:30)
DX: S82.031A Displaced transverse fracture of right patella, initial encounter for closed fracture (principal); W18.30XA Fall on same level, unspecified, initial encounter; F17.210 Nicotine dependence, cigarettes, uncomplicated; J44.9 Chronic obstructive pulmonary disease, unspecified
CPT/HCPCS: 27524; 73560; 76000; 93005; J0171; J0690; J1100; J2250; J2405; J3010

== ENCOUNTER → 2024-03-06 08:57 | Outpatient (CLI) | payer MEDICARE, SELFPAY ==
--- NOTE | 2024-03-06 08:59 | DI.CT.S_ITS ---
PROCEDURE: CT CHEST WO CON INDICATIONS: MALIGNANT NEOPLASM OF LOWER LOBE OF RT LUNG TECHNIQUE: Noncontrast 5 mm thick sections acquired from the pulmonary apices to the posterior costophrenic angles. 1 mm lung window, 5 mm thick coronal and sagittal and 7 mm axial MIP reformats were then acquired. For radiation dose reduction, the following was used: automated exposure control, adjustment of mA and/or kV according to patient size. COMPARISON: [facility], CT, CT CHEST WO CON, 01/04/2023, 10:07. [facility], CT, CT CHEST WITHOUT CONTRAST, 07/16/2023, 11:50. FINDINGS: Image quality: Excellent Lungs: Again seen is small subpleural pulmonary nodule in the right lower lobe, measuring 6 mm, unchanged from prior exam (series 3, image 186). There is subjacent septal thickening in linear distribution, unchanged from prior exam, likely representing post radiation changes. 9 mm cyst with mildly thick wall in the right lower lobe, anterior to the area of postradiation changes, unchanged from prior exam (series 3, image 174). Moderate central lobular emphysema. 3 mm pulmonary nodule in the right lung apex (3:61), unchanged from prior exam. No pleural effusion or pneumothorax. No pulmonary edema. Soft tissue/mediastinum: Mild calcification of the thoracic aorta. No thoracic aortic aneurysm. Heart is normal in size. No pericardial effusion. Mild LAD calcification. Mild mitral annular calcification. Mild aortic annular calcification. No mediastinal, hilar, or axillary lymphadenopathy. Upper abdomen: Calcified granuloma in the liver. Unremarkable Bones: Internal fixation of the left proximal humerus. IMPRESSION: 1. 6 mm subpleural pulmonary nodule in the right lower lobe, with subjacent post radiation changes, unchanged from prior exam. 2. 9 mm lung cyst with mildly thick meneses in the right lower lobe, unchanged. Dictated by: Natalie Hernandez M.D. on 03/06/2024 at 14:12 Approved by: Natalie Hernandez M.D. on 03/06/2024 at 14:30
== END ==
LOC: CT 08:58
PROVIDERS: PCP Family Medicine; Referring Provider Radiology Radiation Oncology; Visit Provider Radiology Radiation Oncology
DX: C34.31 Malignant neoplasm of lower lobe, right bronchus or lung (principal); R91.1 Solitary pulmonary nodule; J98.4 Other disorders of lung; I34.81 Nonrheumatic mitral (valve) annulus calcification; I25.10 Atherosclerotic heart disease of native coronary artery without angina pectoris
CPT/HCPCS: 71250

== ENCOUNTER → 2024-10-18 11:03 | Outpatient (CLI) | payer MEDICARE, SELFPAY ==
--- NOTE | 2024-10-18 11:05 | DI.CT.S_ITS ---
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 1 mm lung window, 5 mm thick coronal and sagittal and 7 mm axial MIP reformats were then acquired. For radiation dose reduction, the following was used: automated exposure control, adjustment of mA and/or kV according to patient size. COMPARISON: [facility], CT, CT CHEST WITHOUT CONTRAST, 07/16/2023, 11:50. [facility], CT, CT CHEST WO CON, 03/06/2024, 9:06. [facility], CT, CT CHEST WO CON, 01/04/2023, 10:07. FINDINGS: Image quality: Diagnostic. Lower Neck: No enlarged lymph nodes. Thyroid: No thyroid nodules which require sonographic follow up, per consensus guidelines. Axillae: No enlarged lymph nodes. Chest Wall: Unremarkable. Bones: Old healed left lower rib fractures. No aggressive osseous abnormality. Lungs and Pleura: No pneumothorax or pleural effusions. Moderate centrilobular emphysema. 7 mm subpleural nodule at the posterior right lower lobe with surrounding post radiation changes (3/187), not significantly changed common differences in slice selection. Stable 9 mm thick-walled cyst in the right lower lobe (3/180). 2 new nodules are seen in the lateral left lower lobe each measuring 3 mm (3/183). Heart: Heart size is normal. No pericardial effusion. Mild coronary artery calcifications. Thoracic Vessels: The aorta and pulmonary arteries demonstrate normal size. Mediastinum and Edie: No enlarged lymph nodes. Esophagus: No wall thickening. No hiatal hernia. Upper Abdomen: Visualized upper abdomen solid organs and bowel loops appear normal. IMPRESSION: 1. Two new 3 mm nodules are seen in the left lower lobe, which are indeterminate. Recommend attention on follow-up. 2. Stable right lower lobe subpleural nodule surrounding postradiation changes and right lower lobe cyst with mildly thickened meneses. Approved by: Diallo Pyle M.D. on 10/18/2024 at 15:31
== END ==
LOC: CT 11:04
PROVIDERS: PCP Family Medicine; Referring Provider Radiology Radiation Oncology; Visit Provider Radiology Radiation Oncology
DX: C34.31 Malignant neoplasm of lower lobe, right bronchus or lung (principal); J98.4 Other disorders of lung; J43.2 Centrilobular emphysema; R91.8 Other nonspecific abnormal finding of lung field; I25.10 Atherosclerotic heart disease of native coronary artery without angina pectoris
CPT/HCPCS: 71250